=== PATIENT | female | born 1990 | race Caucasian/White ===

== ENCOUNTER 2018-11-28 10:23 | Emergency (ER) | payer MEDICAID ==
[~2018-11-28] VITALS: Ht 165.1 cm; Wt 92.0 kg
[2018-11-28 10:49] VITALS: BP 115/81
[2018-11-28] MEDS ORDERED: amoxicillin 250mg capsule PO ONE (12:15)
[2018-11-28] MEDS ORDERED: acetaminophen 325mg tablet PO ONE (12:15)
[2018-11-28] MEDS ORDERED: ACET-2615 PO (12:16)
[2018-11-28] MEDS ORDERED: AMOX500C2 PO (12:16)
== END 2018-11-28 12:39 | disposition home or self-care (01) ==
LOC: ER 10:24
DX: K08.89 Other specified disorders of teeth and supporting structures (principal); Z79.899 Other long term (current) drug therapy
CPT/HCPCS: 99283